=== PATIENT | male | born 1985 ===

== ENCOUNTER 2017-10-06 13:32 | Observation (INO) | payer OTHER ==
[~2017-10-06] VITALS: Ht 177.8 cm; Wt 80.7 kg
[2017-10-06 14:40] LABS: BASO % 0.3 % (0.0-2.0); GRAN % 74.4 % (42.2-75.2); HEMATOCRIT 39.9 % (42.0-52.0); HEMOGLOBIN 13.2 g/dl (13.5-18.0); LYMPH # 1.8 (1.2-3.4); LYMPH % 16.7 % (20.0-51.0); MEAN CELL VOLUME 92 fl (80.0-100.0); MEAN CORPUSCULAR HEMOGLOBIN 30 pg (27.0-31.0); MEAN CORPUSCULAR HGB CONC 33 g/dl (33.0-37.0); MEAN PLATELET VOLUME 10.1 fl (7.4-10.4); MONO # 0.9 (0.1-0.6); MONO % 8.2 % (1.7-9.3); PLATELET COUNT 225 K/mm3 (130-400); RED BLOOD COUNT 4.34 M/mm3 (4.20-5.60)
[2017-10-06 14:47] LABS: ALBUMIN 4.5 gm/dL (3.5-5.0); BILIRUBIN,TOTAL 0.9 mg/dL (0.0-1.0); CALCIUM 9.6 mg/dL (8.4-10.2); CREATININE, serum 1.21 mg/dL (0.66-1.25); POTASSIUM 4.7 mmol/L (3.4-5.0)
[2017-10-06 15:50] VITALS: BP 124/78; PULSE 75; TEMP 97.3
[2017-10-06 19:42] VITALS: BP 131/83; PULSE 86; TEMP 99.4
[2017-10-07 00:27] VITALS: BP 128/83; PULSE 70; TEMP 98.6
[2017-10-07 04:26] VITALS: BP 136/71; PULSE 64; TEMP 98
[2017-10-07 07:33] VITALS: BP 127/64; PULSE 69; TEMP 98.2
[2017-10-07 08:04] LABS: CALCIUM 8.8 mg/dL (8.4-10.2); CREATININE, serum 1.1 mg/dL (0.66-1.25); POTASSIUM 4.1 mmol/L (3.4-5.0)
[2017-10-07 08:05] LABS: ALBUMIN 3.5 gm/dL (3.5-5.0); BILIRUBIN,TOTAL 0.3 mg/dL (0.0-1.0); TOTAL PROTEIN 6.4 gm/dL (6.4-8.2)
[2017-10-07 12:27] VITALS: BP 127/79; PULSE 67; TEMP 98.4
[2017-10-07 13:13] LABS: TROPONIN-I 0.072 ng/mL (0.000-0.034)
[2017-10-07 15:30] VITALS: BP 135/82; PULSE 65; TEMP 98.3
[2017-10-07 20:08] VITALS: BP 130/87; PULSE 71; TEMP 98.3
[2017-10-08 01:16] VITALS: BP 125/78; PULSE 66; TEMP 97.6
[2017-10-08 04:06] VITALS: BP 136/89; PULSE 59; TEMP 98.1
[2017-10-08 07:35] VITALS: BP 129/89; PULSE 62; TEMP 98.4
[2017-10-08 07:35] LABS: CALCIUM 8.9 mg/dL (8.4-10.2); CREATININE, serum 0.99 mg/dL (0.66-1.25); POTASSIUM 4.2 mmol/L (3.4-5.0)
[2017-10-08 07:42] LABS: TROPONIN-I 0.063 ng/mL (0.000-0.034)
[2017-10-08 11:34] VITALS: BP 146/95; PULSE 63; TEMP 98.2
== END 2017-10-08 15:32 | disposition home or self-care (01) ==
LOC: MEDICAL 13:32
PROVIDERS: Internal Medicine
DX: M62.82 Rhabdomyolysis (principal); R53.83 Other fatigue; R31.9 Hematuria, unspecified
CPT/HCPCS: G0378; G0379; J7030